=== PATIENT | male | born 1990 | race Caucasian/White ===

== ENCOUNTER → 2017-03-02 | Outpatient (REF) ==
--- NOTE | 2017-03-03 02:46 | REP ---
Clinical: Neck pain . Technique: AP, lateral, flexion/extension, bilateral oblique, and open-mouth views. Findings: Alignment and lordosis is maintained. There is no evidence for acute fracture / compression injury or subluxation. No significant degenerative changes are appreciated. Oblique views demonstrate patent neural foramen. Open mouth view demonstrates normal C1-C2 articulation and odontoid process. Impression: Normal cervical spine series. Signed by Tyler Leroy MD 03/03/2017 02:38 A
--- NOTE | 2017-03-03 02:49 | REP ---
Clinical: Back pain . Technique: AP, lateral, bilateral oblique, and coned-down views. Findings: Alignment and lordosis is maintained. The vertebral bodies including transverse process and spinous processes are intact and normal. There is no evidence for acute fracture / compression injury or subluxation. No evidence for spondylolysis or spondylolisthesis. No significant degenerative change is noted. Impression: Normal lumbosacral spine radiograph series. Signed by Tyler Leroy MD 03/03/2017 02:41 A
--- NOTE | 2017-03-03 02:50 | REP ---
Clinical: Chest and back pain . Comparison: None . Technique: PA and lateral. Findings: The mediastinum and cardiac silhouette are normal. The lung travis are clear and without acute consolidation, effusion, or pneumothorax. The skeletal structures are intact and normal. Impression: 1. No acute cardiopulmonary process. Signed by Tyler Leroy MD 03/03/2017 02:41 A
--- NOTE | 2017-03-03 02:51 | REP ---
Clinical: Abdominal pain. Technique: Two supine views of the abdomen and pelvis. Findings: Bowel gas pattern is nonspecific. No organomegaly. No abnormal calcifications. Skeletal structures are intact. Impression: Normal abdominal radiographs. Signed by Tyler Leroy MD 03/03/2017 02:42 A
== END ==
LOC: M RAD 11:42
PROVIDERS: ATTEND Registered Nurse
DX: R06.02 Shortness of breath (principal); M54.2 Cervicalgia; M54.9 Dorsalgia, unspecified; R10.9 Unspecified abdominal pain

== ENCOUNTER 2019-04-20 23:30 | Emergency (ER) | payer OTHER ==
[~2019-04-20] VITALS: Ht 177.8 cm; Wt 113.6 kg
[2019-04-21] MEDS ORDERED: ADACEL/BOOSTRIX VACCINE (DIPHTH/PERTUSS/ACELL/TETANUS)0.5ML SYR (90715) IM ONE
[2019-04-21] MEDS ORDERED: DERMABOND TOPICAL SKIN ADHESIVE TOP ONE (00:15)
[2019-04-21 00:57] VITALS: BP 111/56
== END 2019-04-21 01:02 | disposition home or self-care (01) ==
LOC: M ED 23:30
DX: S51.812A Laceration without foreign body of left forearm, initial encounter (principal); S50.812A Abrasion of left forearm, initial encounter; W22.09XA Striking against other stationary object, initial encounter; Y92.89 Other specified places as the place of occurrence of the external cause; Y99.0 Civilian activity done for income or pay

== ENCOUNTER → 2020-09-11 | Outpatient (REF) | payer OTHER ==
[~2020-09-11] MED LIST: ACET-897 PO; D-ME1CAP36 PO; ECOT81TA5 PO; LEVO750T13 PO; OMEP40CA97 PO; PRED10TA2 PO; [UNRECOGNIZED DRUG - OTHER] PO
== END ==
LOC: M LAB REF 17:20
PROVIDERS: ATTEND Internal Medicine Pulmonary Disease
DX: R05 Cough (principal)

== ENCOUNTER → 2020-09-17 | Outpatient (CLI) | payer OTHER ==
--- NOTE | 2020-09-18 08:23 | REP ---
INDICATION: ABN FINDING OF LUNG COMPARISON: 07/16/2020 TECHNIQUE: Axial noncontrast images from the thoracic inlet to the upper abdomen with coronal and sagittal reformations. This CT examination was performed using the following dose reduction techniques: Automated exposure control, adjustment of mA and/or kv according to the patient's size, and use of iterative reconstruction technique. FINDINGS: The bilateral lung travis are well aerated. Very subtle scattered areas of ground-glass opacity along with moderate scattered mid to lower lung field scarring and bronchiectasis suggest residual chronic changes related to prior multifocal infiltrates (presumed to have been COVID-19 pulmonary disease. No acute consolidation, effusion, or pneumothorax. No significant adenopathy. The mediastinum demonstrates normal thoracic aorta, pulmonary vasculature, and heart/pericardium. Upper abdomen demonstrates fatty infiltration to the liver and normal bilateral adrenal glands. 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 No acute consolidation or effusion. <Electronically signed by Tyler Leroy > 09/18/20 [id number]
== END ==
LOC: M RAD 14:52
PROVIDERS: ATTEND Internal Medicine Pulmonary Disease
DX: R91.8 Other nonspecific abnormal finding of lung field (principal)